=== PATIENT | female | born 1950 | race Caucasian/White ===

== ENCOUNTER 2023-12-25 07:06 | Day surgery (SDC) | payer OTHER, BC ==
[2023-12-20 10:35] VITALS: BMI 22.1
[2023-12-25] MEDS ORDERED: TETRACAINE 0.5% OPHTH SOLN 2 ML BOTTLE ONE (07:12)
[2023-12-25] MEDS ORDERED: BSS (NA/CA/MG/K) BALANCED SALT SOLUTION OPHTH SOLN 15 ML BOTTLE ONE (07:12)
[2023-12-25] MEDS ORDERED: NEO/POLYMYX B SULF/DEXAMETH OPHTHALMIC 5ML BOTTLE ONE (07:12)
[2023-12-25] MEDS ORDERED: LIDOCAINE 1% P/F 10 MG/ML VIAL ONE (07:12)
[2023-12-25] MEDS ORDERED: CARBACHOL 0.01% INTRA-OCULAR 1.5 ML VIAL ONE (07:12)
[2023-12-25] MEDS: PHENYLEPHRINE 2.5% OPHTH SOLN 15 ML BOTTLE OS ONE ×3 (07:35→07:45)
[2023-12-25] MEDS: CYCLOPENTOLATE 2% OPHTH SOLN 2 ML BOTTLE OS ONE ×3 (07:35→07:45)
[2023-12-25] MEDS: CIPROFLOXACIN 0.3% EYE DROPS 5 ML BOTTLE OS ONE ×3 (07:35→07:45)
[2023-12-25] MEDS: TROPICAMIDE 1% OPHTH SOLN 15 ML BOTTLE OS ONE ×3 (07:35→07:45)
[2023-12-25] MEDS ORDERED: MIDAZOLAM HCL 2 MG/2 ML SINGLE DOSE VIAL ONE (08:47)
[2023-12-25 10:01] VITALS: RESP 18; TEMP 97.9
[2023-12-25 10:42] VITALS: BP 123/71; PULSE 64
== END 2023-12-25 10:35 | disposition home or self-care (01) ==
LOC: FASU 07:06
PROVIDERS: ATTEND Ophthalmology
PROC: 08RK3JZ Replacement of Left Lens with Synthetic Substitute, Percutaneous Approach (ICD-10-PCS; principal; 2023-12-25 09:22)
DX: H26.8 Other specified cataract (principal)
CPT/HCPCS: 66984; V2632

== ENCOUNTER 2024-07-08 06:00 | Day surgery (SDC) | payer OTHER, BC ==
[2024-07-02 15:40] VITALS: BMI 21.4
[2024-07-08] MEDS: PHENYLEPHRINE 2.5% OPTHALMIC DROP 2ML BOTTLE ONE (06:35)
[2024-07-08] MEDS: CIPROFLOXACIN 0.3% EYE DROPS 5 ML BOTTLE ONE (06:35)
[2024-07-08] MEDS: TROPICAMIDE 1% OPHTH SOLN 15 ML BOTTLE ONE (06:35)
[2024-07-08] MEDS: CYCLOPENTOLATE 2% OPHTH SOLN 2 ML BOTTLE ONE (06:35)
[2024-07-08 06:40] VITALS: RESP 18
[2024-07-08] MEDS ORDERED: MIDAZOLAM HCL 2 MG/2 ML SINGLE DOSE VIAL ONE (06:58)
[2024-07-08] MEDS ORDERED: EPINEPHrine/PF 1 MG/1 ML (1:1,000) AMPULE ONE (07:21)
[2024-07-08] MEDS ORDERED: LIDOCAINE 1% P/F 10 MG/ML VIAL ONE (07:21)
[2024-07-08] MEDS ORDERED: TETRACAINE 0.5% OPHTH SOLN 2 ML BOTTLE ONE (07:22)
[2024-07-08] MEDS ORDERED: BSS (NA/CA/MG/K) BALANCED SALT SOLUTION OPHTH SOLN 15 ML BOTTLE ONE (07:22)
[2024-07-08] MEDS ORDERED: NEO/POLYMYX B SULF/DEXAMETH OPHTHALMIC 5ML BOTTLE ONE (07:24)
[2024-07-08] MEDS ORDERED: CARBACHOL 0.01% INTRA-OCULAR 1.5 ML VIAL ONE (07:24)
[2024-07-08 09:01] VITALS: TEMP 97
[2024-07-08 09:35] VITALS: BP 127/84; PULSE 61
== END 2024-07-08 09:30 | disposition home or self-care (01) ==
LOC: FASU 06:00
PROVIDERS: ATTEND Ophthalmology
PROC: 08RJ3JZ Replacement of Right Lens with Synthetic Substitute, Percutaneous Approach (ICD-10-PCS; principal; 2024-07-08 08:25)
DX: H26.8 Other specified cataract (principal)
CPT/HCPCS: 66984; V2632